=== PATIENT | male | born 1960 ===

== ENCOUNTER → 2016-12-04 | Day surgery (SDC) | payer OTHER ==
[~2016-12-04] VITALS: Ht 177.8 cm; Wt 117.2 kg
[~2016-12-04] MED LIST: CENTRUM SILVER1 EAC5 PO; COZAAR100 MG PO; FISH OIL 1,2001 EAC2 PO; GLUCOSAMINE H1500 MG PO; PEPCID20 MG PO
== END | disposition disaster alternative care site (69) ==
LOC: GPOC 12-02 14:00
PROC: 0DJD8ZZ Inspection of Lower Intestinal Tract, Via Natural or Artificial Opening Endoscopic (ICD-10-PCS; principal; 2016-12-04)
DX: Z12.11 Encounter for screening for malignant neoplasm of colon (principal); K57.30 Diverticulosis of large intestine without perforation or abscess without bleeding; K64.8 Other hemorrhoids; M19.90 Unspecified osteoarthritis, unspecified site; K21.9 Gastro-esophageal reflux disease without esophagitis; E66.9 Obesity, unspecified; I10 Essential (primary) hypertension; E78.2 Mixed hyperlipidemia; R73.03 Prediabetes; Z79.82 Long term (current) use of aspirin; Z79.899 Other long term (current) drug therapy; Z88.1 Allergy status to other antibiotic agents; Z87.891 Personal history of nicotine dependence
CPT/HCPCS: J2001; J7030